=== PATIENT | male | born 1990 ===

== ENCOUNTER 2018-07-21 07:09 | Inpatient (IN) | payer OTHER ==
[~2018-07-21] VITALS: Ht 182.9 cm; Wt 70.2 kg
[2018-07-21] MEDS ORDERED: LORazepam 2 MG/ML VIAL ONE (07:19)
[2018-07-21 08:05] LABS: PHENYTOIN (DILANTIN) 0.5 mcg/mL (10.0-20.0)
[2018-07-21] MEDS ORDERED: PHENYTOIN SODIUM 500 MG in SODIUM CHLORIDE 0.9% 100 ML IV ONE (08:15)
[2018-07-21] MEDS ORDERED: LORazepam 2 MG/ML VIAL IVP ONE ×2 (08:15→13:00)
[2018-07-21 09:28] LABS: AMPHET/METH SCREEN,URINE NEGATIVE (NEGATIVE); BARBITURATE SCREEN, URINE POSITIVE (NEGATIVE); BENZODIAZEPINES SCREEN,URINE POSITIVE (NEGATIVE); CANNABINOID SCREEN,URINE POSITIVE (NEGATIVE); COCAINE SCREEN,URINE NEGATIVE (NEGATIVE); METHADONE SCREEN, URINE NEGATIVE (NEGATIVE); OPIATE SCREEN,URINE NEGATIVE (NEGATIVE)
[2018-07-21 09:35] LABS: PHENCYCLIDINE SCREEN,URINE NEGATIVE (NEGATIVE)
[2018-07-21] MEDS ORDERED: LISI-660 PO (10:16)
[2018-07-21] MEDS ORDERED: INSNOV SQ (10:16)
[2018-07-21] MEDS ORDERED: METO5TAB95 PO (10:16)
[2018-07-21] MEDS ORDERED: ONDA4 PO (10:16)
[2018-07-21] MEDS ORDERED: MAGNESIUM HYDROXIDE SUSPENSION 30 ML UDCUP PO PRN (10:30)
[2018-07-21] MEDS ORDERED: INSULIN LISPRO 100 UNITS/ML SQ PRN (10:30)
[2018-07-21] MEDS ORDERED: PANTOPRAZOLE SODIUM 40 MG/VIAL IVP SCH (10:30)
[2018-07-21] MEDS ORDERED: DEXTROSE 50%-WATER 25 GM/50 ML SYRINGE IVP PRN (10:30)
[2018-07-21] MEDS ORDERED: ACETAMINOPHEN 325 MG TABLET PO PRN (10:30)
[2018-07-21] MEDS ORDERED: LORazepam 2 MG/ML VIAL IVP PRN (10:30)
[2018-07-21] MEDS ORDERED: ONDANSETRON HCL 4 MG/2 ML VIAL IVP PRN (10:30)
[2018-07-21] MEDS ORDERED: LISINOPRIL 10 MG TABLET PO ONE (11:00)
[2018-07-21 11:03] LABS: BASOPHILS % (AUTO) 0.4 % (0.0-2.0); EOSINOPHILS % (AUTO) 0 % (1.0-6.0); HEMATOCRIT 41.1 % (41-53); HEMOGLOBIN 13.1 g/dL (13.5-17.5); LYMPHOCYTES # (AUTO) 0.6 K/uL (1.0-4.8); LYMPHOCYTES % (AUTO) 3.6 % (22.0-44.0); MEAN CORPUSCULAR HEMOGLOBIN 28.8 pg (26.0-34.0); MEAN CORPUSCULAR HGB CONC 31.8 G/dL (31.0-37.0); MEAN CORPUSCULAR VOLUME 91 fL (80-100); MONOCYTES # (AUTO) 0.9 K/uL (0.1-1.0); MONOCYTES % (AUTO) 5.4 % (2.0-9.0); NEUTROPHILS # (AUTO) 15.1 K/uL (1.8-7.7); PLATELET COUNT (AUTO) 269 K/uL (150-450); RED BLOOD CELL COUNT(AUTO) 4.53 MIL/uL (4.50-5.90); RED CELL DISTRIBUTION WIDTH 19.1 % (11.5-14.5)
[2018-07-21 11:04] LABS: NEUTROPHILS % (AUTO) 90.6 % (40.0-70.0)
[2018-07-21 11:06] LABS: ANION GAP 24 mmol/L (8-16); CALCIUM, TOTAL 9.1 mg/dL (8.8-10.5); CARBON DIOXIDE 14 mmol/L (22-29); CHLORIDE 95 mmol/L (98-107); CREATININE 1.04 mg/dL (0.60-1.30); GLOMERULAR FILTR. RATE CALC > 60 mL/min (>60); GLUCOSE,RANDOM 331 mg/dL (70-110); POTASSIUM 5.6 mmol/L (3.5-5.1); SODIUM SERUM 133 mmol/L (136-145); UREA NITROGEN, BLOOD 12 mg/dL (7-18)
[2018-07-21 11:12] LABS: ALANINE AMINOTRANSFERASE 21 U/L (12-78); ALBUMIN 3.9 g/dL (3.4-5.0); ALKALINE PHOSPHATASE 106 U/L (46-116); ASPARTATE AMINOTRANSFERASE 31 U/L (15-37); BILIRUBIN,TOTAL 0.8 mg/dL (0.1-1.0); TOTAL PROTEIN, SERUM 8.2 g/dL (6.4-8.2)
[2018-07-21 11:16] LABS: PROTHROMBIN TIME 10.2 SEC (9.4-11.6)
[2018-07-21] MEDS ORDERED: FAMOTIDINE 40 MG in SODIUM CHLORIDE 0.9% 100 ML IV ONE (11:30)
[2018-07-21] MEDS ORDERED: SODIUM CHLORIDE 0.9% 1,000 ML IV ONE (11:45)
[2018-07-21 17:36] VITALS: BP 156/94
[2018-07-21 19:50] LABS: GLUCOMETER DEV NAME(LOC) 5S.2; GLUCOSE,POINT OF CARE 309 MG/DL (70-110)
[2018-07-21] MEDS ORDERED: DOCUSATE SODIUM 100 MG CAPSULE PO SCH (21:00)
== END 2018-07-21 18:45 | disposition left against medical advice (07) | DRG 53 ==
LOC: EMS 07:11 → 5S 16:07
PROVIDERS: ADMIT Internal Medicine; ATTEND Internal Medicine
DX: G40.909 Epilepsy, unspecified, not intractable, without status epilepticus (principal); K31.84 Gastroparesis; E11.43 Type 2 diabetes mellitus with diabetic autonomic (poly)neuropathy; E87.2 Acidosis; E11.65 Type 2 diabetes mellitus with hyperglycemia; I10 Essential (primary) hypertension; Z79.4 Long term (current) use of insulin; Z82.49 Family history of ischemic heart disease and other diseases of the circulatory system; Z83.3 Family history of diabetes mellitus; Z91.19 Patient's noncompliance with other medical treatment and regimen
CPT/HCPCS: 70450; 93005; 96365; 96375; 99291; C9113; G0378; G0480; J1165; J2060; J2405; J3490; J7030; J7050